=== PATIENT | male | born 1985 | race Caucasian/White ===

== ENCOUNTER 2023-08-18 08:33 | Emergency (ER) | payer BC, SELFPAY ==
[2023-08-18] VITALS (9 sets, daily range): BP systolic 134–167; BP diastolic 87–110
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
== END 2023-08-18 10:26 | disposition home or self-care (01) ==
LOC: EMR 08:33
PROVIDERS: EMERGENCY PHYSICIAN Emergency Medicine; OTHER PHYSICIAN Internal Medicine Nephrology
DX: S43.015A Anterior dislocation of left humerus, initial encounter (principal); S43.035A Inferior dislocation of left humerus, initial encounter; X58.XXXA Exposure to other specified factors, initial encounter; I48.91 Unspecified atrial fibrillation; N18.6 End stage renal disease; I12.0 Hypertensive chronic kidney disease with stage 5 chronic kidney disease or end stage renal disease; I50.9 Heart failure, unspecified; Z79.01 Long term (current) use of anticoagulants; Z99.2 Dependence on renal dialysis
CPT/HCPCS: 99285; 23650; 99152; 73030

== ENCOUNTER 2023-09-27 07:21 | Emergency (ER) | payer BC, SELFPAY ==
[2023-09-27] VITALS (9 sets, daily range): BP systolic 130–161; BP diastolic 92–111
--- NOTE | 2023-09-27 08:06 | ED.GENMED ---
History of Present Illness
General
Chief Complaint: Musculo-Skeletal Complaint
Source: patient
Time Seen by Provider: 09/27/23 07:39
Travel History
Have you had any contact with someone who has COVID-19?: No
Do you have any symptoms of coronavirus? Fever > 100 degrees, chills, cough, shortness of breath, sore throat, loss of taste or smell, muscle aches, or headache?: No
History of Present Illness
History of Present Illness:
This patient is a 38-year-old male presents emergency department complaints of left shoulder dislocation. This has happened several times in the past, most notably approximately 2 months since the year started. He has a fistula in his left upper
extremity as he is a hemodialysis patient and is due to get hemodialysis later today. He states this occurred when he leaned over to turn off his alarm clock, which has been a precipitating factor in the past. He denies numbness, tingling, fall or
trauma, neck pain, chest pain, shortness of breath, or other complaints.
Past History
Past History
ED Past Medical History: CHF and Renal failure
ED Past Surgical History: Other (L AV shunt)
Patient has exhibited threatening behavior?: No
PSI?: No
Social History
Tobacco: Non-smoker
Alcohol: None
Drug: None
Phy Exam
Physical Exam
Physical Exam:
GENERAL: Alert , in no apparent distress
EYE: pupils equal and reactive
NECK: Supple, no significant adenopathy.
ENT: o/p clr, mmm.
CARDIAC: Regular rate and rhythm .
LUNGS: Clear breath sounds bilaterally, no acute respiratory distress, no wheezes/rales/rhonchi
ABDOMEN: Soft, without focal tenderness, no r/g, no cvat
NEUROLOGICAL: Alert and oriented, no focal neuro deficits
SKIN: Warm and dry, skin intact.
MUSCULOSKELETAL: No edema, well perfused. Sensation intact particular the deltoid area. Left shoulder with 'rounded off' deformity/appearance, limited range of motion of left shoulder, no break in skin, no tenderness to palpation noted of clavicle
or distal humerus etc. 2+ radial ulnar pulses, process treater 5 out of 5.
PSYCH: Normal and appropriate interaction.
Course
Orders/Labs/Results
Orders:
Orders
09/27/23 07:25
Shoulder, Left, Trauma CR [CR Shoulder, Trauma - Left] Urgent
Comment:
Reason For Exam: pain, chronic dislocations
09/27/23 07:51
Propofol [Diprivan] 20 ml .ROUTE .STK-MED
09/27/23 08:25
CR Shoulder - Left 1 View Urgent
Reason For Exam: post reduction
Vital Signs
Initial and Last Documented VS:
Initial Vital Signs
Temp Pulse Resp BP Pulse Ox
97.7 F 82 20 161/109 100
09/27/23 07:22 09/27/23 07:22 09/27/23 07:22 09/27/23 07:22 09/27/23 07:22
Last Documented Vital Signs
Temp Pulse Resp BP Pulse Ox
97.8 F 73 16 137/92 98
09/27/23 09:01 09/27/23 09:01 09/27/23 09:01 09/27/23 09:01 09/27/23 09:01
Procedures
Moderate Sedation
ASA Risk Score: Class I
Chart and allergies reviewed: Yes
Consent for anesthesia obtained: Yes
Time out completed (validating right patient & procedure): Yes
History of difficult intubation: No
Airway free of obstruction: Yes
Patient has a gag reflex: Yes
Patient is able to open mouth: Yes
Patient has no dentures: Yes
Patient has no loose teeth: Yes
Medication administered by Provider during Moderate Sedation: IV Propofol (mg)
Total dose administered: 120
Time drug administered: 08:13
Start Time: 08:12
Stop Time: 08:33
Joint/Fracture Reduction
Lower Shoulder:
Indication for procedure:: DISLOCATION
Procedure completed by: JUSTYN SUTHERLAND MD AND MARIAH CHÁVEZ MD
Consent form signed: Yes
Joint reduced: with anesthesia sedation
Anesthesia/sedation: Moderate sedation
Injury was: closed
Further treatement: no treatment needed
Post reduction exam: stable
Capillary Refill: normal
Normal distal neurovascular exam?: Yes
*Critical Care Note
Total Time (30-74mins, 75-104mins- exclusive of procedures): Not Applicable
Update Note
Update Note:
Patient presents to the Emergency Department with left shoulder discomfort
Number and Complexity of Problems Addressed at the Encounter
� Chronic conditions affecting care:
� Acute Exacerbation and/or Progression of Chronic Illness:
� Differential Diagnosis includes: But not limited to dislocation, fracture, sprain
Amount and/or Complexity of Data to be Reviewed and Analyzed
� I performed an independent evaluation of and my interpretation is:
EKG:
CT:
Xrays: Read by me, left anterior shoulder dislocation noted
Laboratory Studies:
Other:
� Review of other/old records reveals:
� Clinical information was obtained by an independent historian:
� Prescriptions/Medications Considered but not given:
� Further testing considered but not performed:
Risk of Complications and/or Morbidity or Mortality of Patient Management
� Social determinants of health affecting care:
� Discussion with other providers (PCP, Hospitalists, Consultants, etc):
� Escalation of care including admission/observation vs risk of discharge considered: In collaboration with Dr. Mariah CHÁVEZ, procedural sedation administered and shoulder successfully reduced, patient placed in a sling and will be
advised for Ortho follow-up as an outpatient. Patient tolerated procedure well. pOST RED XRAY WIth successful reduction. 902 am Pt awake alert lucid, will be discharged home, aware of bp elevation.
ED Attending Note
-
Portions of this chart may have been created with voice recognition software.� Occasional wrong word or��sound alike� substitutions may have occurred due to the inherent limitations of voice recognition software.
Discharge Plan
Departure
Patient Disposition: Home (Routine Discharge)
Date of Disposition: 09/27/23
Time of Disposition: 09:02
Patient with high blood pressure during this ER visit?: Yes
Condition: Good
Discharge Problem:
Anterior shoulder dislocation, procedural sedation
Instructions: Shoulder Dislocation, How to Use a Shoulder Sling, MODERATE SEDATION ADULT, BLOOD PRESSURE
Prescriptions:
No Action
acetaminophen [Tylenol] 325 mg Tablet
650 mg PO Q6H PRN (Reason: mild pain)
carvedilol 3.125 mg Tablet
3.125 mg PO BID
digoxin 125 mcg (0.125 mg) Tablet
125 mcg PO TUTHFR@1500
Rx Instructions:
Per Dr Thanh Ac administrative court justice in [place] was supposed to be taking only 0.0625 (half tablet) after HD on TThSa but since his level is ok go ahead and give whole 125mcg tablet--01/21/23 Jose Zhang PharmD
[phone] Dr Ac office number
Santyl 250 unit/gram Ointment
1 applic TOPICAL DAILY
Rx Instructions:
01/20/2023, patient applies to b/l leg wounds
[place] Caps 1 mg Capsule
1 cap PO DAILY
cinacalcet 30 mg Tablet
30 mg PO QPM
Eliquis 5 mg Tablet
5 mg PO BID
Auryxia 210 mg iron Tablet
210 mg PO AC
meclizine 12.5 mg Tablet
12.5 mg PO Q8 PRN (Reason: dizziness) Qty: 21 0RF
Referrals:
NONE,* [Family Provider] -
Dex Spangler MD [Active] - Next open appointment
Activity Restrictions/Additional Instructions:
IF YOU DEVELOP NEW/PERSISTENT PAIN, ANY NUMBNESS, SWELLING, FEVER, WEAKNESS OR OTHER WORRISOME SIGNS, GO TO THE ER IMMEDIATELY!
Interventions
Interventions:
*Risk Screen - Suicide Last Done: 09/27/23 07:53
*Neglect/Abuse Screening Last Done: 09/27/23 07:53
ED- Fall Risk Assessment Last Done: 09/27/23 07:55
*ED COVID-19 Vaccine History Last Done: 09/27/23 07:53
ED-Musculoskeletal Assessment Last Done: 09/27/23 07:53
== END 2023-09-27 09:32 | disposition home or self-care (01) ==
LOC: EMR 07:21
PROVIDERS: EMERGENCY PHYSICIAN Emergency Medicine
DX: S43.005A Unspecified dislocation of left shoulder joint, initial encounter (principal); X50.1XXA Overexertion from prolonged static or awkward postures, initial encounter; R03.0 Elevated blood-pressure reading, without diagnosis of hypertension
CPT/HCPCS: 99285; 23650; 99152; 73020; 73030

== ENCOUNTER 2023-11-07 08:30 | Emergency (ER) | payer BC, SELFPAY ==
[2023-11-07] VITALS (28 sets, daily range): BP systolic 138–168; BP diastolic 97–118
--- NOTE | 2023-11-07 10:15 | ED.MUSCINJ ---
HPI-Injury
<Jaky Grimes, MAINTENANCE DEPARTMENT MANAGER - Last Filed: 11/08/23 07:55>
General
Chief Complaint: Fall
Source: patient
Exam Limitations: none
Time Seen by Provider: 11/07/23 09:10
Nursing documentation reviewed up to this point in time: agreed with
Travel History
Have you had any contact with someone who has COVID-19?: No
Do you have any symptoms of coronavirus? Fever > 100 degrees, chills, cough, shortness of breath, sore throat, loss of taste or smell, muscle aches, or headache?: No
History of Present Illness-Injury
Initial Injury comments:
38-year-old male with history of CHF, A-fib, chronic renal failure on dialysis, left upper arm dialysis graft presents stating he has a history of intermittent lightheadedness, this morning while walking down his steps at home he became lightheaded
and fell on the steps grabbing the railing with his left arm dislocating his shoulder. He denies hitting his head. He denies loss of consciousness. He denies headache. He denies neck pain. He denies any other injury. Pain 04/12.
Past History
<Jaky Grimes, MAINTENANCE DEPARTMENT MANAGER - Last Filed: 11/08/23 07:55>
Past History
ED Past Medical History: Arrthythmia (a fib), CHF and Renal failure
ED Past Surgical History: Other (L AV shunt)
Patient has exhibited threatening behavior?: No
PSI?: No
Social History
Tobacco: Non-smoker
Alcohol: None
Drug: None
Personal: Single
Living: with roommate
Employment: Employed
Review of Systems
<Jaky Grimes, MAINTENANCE DEPARTMENT MANAGER - Last Filed: 11/08/23 07:55>
Review of Systems
Allergies reviewed?: Yes
All Other Systems: ROS reviewed and negative except as documented in HPI and ROS
Musculoskeletal: Reports other (left shoulder pain)
Skin: Reports other (dialysis shunt L upper arm)
Neurological: Denies numbness
Phy Exam
<Jaky Grimes MAINTENANCE DEPARTMENT MANAGER - Last Filed: 11/08/23 07:55>
Physical Exam
Physical Exam:
GENERAL: No acute distress. A&Ox3.
CONSTITUTIONAL: Afebrile.
EYES: PERRL, conjunctivae normal
Neck: Supple
ENMT: moist mucus membranes, Pharynx nl
RESPIRATORY: Regular respirations, nonlabored, lungs clear.
CARDIOVASCULAR: Regular rate and rhythm, no murmurs, no rubs.
GI: Soft, nontender, normal BS
MUSCULOSKELETAL: No spinal bony tenderness. Obvious deformity of the left shoulder with limited range of motion of L ED you. Normal radial pulse. Brisk capillary refill. Well perfused.
SKIN: Warm, dry, pink dialysis shunt intact left upper extremity..
PSYCH: Normal mood and affect. Well kept, interactive and appropriate
NEUROLOGIC: Awake, alert and oriented. No focal neurological deficits
Injury Course
<Jaky Grimes MAINTENANCE DEPARTMENT MANAGER - Last Filed: 11/08/23 07:55>
Orders/Labs/Results
Orders:
Orders
11/07/23 08:50
Shoulder, Left 2 View CR [CR Shoulder - Left Min 2 View*] Urgent
Comment:
Reason For Exam: injury
11/07/23 10:27
Propofol [Diprivan] 20 ml .ROUTE .STK-MED
11/07/23 11:39
CR Shoulder - Left 1 View Urgent
Comment: portable please
Reason For Exam: post reduction
Mold Injector consulted with Physician
Mold Injector consulted with physician?: Yes
Name of Physician Consulted: [facility]
<Katt Britt MD - Last Filed: 11/07/23 11:42>
Orders/Labs/Results
Orders:
Orders
11/07/23 08:50
Shoulder, Left 2 View CR [CR Shoulder - Left Min 2 View*] Urgent
Comment:
Reason For Exam: injury
11/07/23 10:27
Propofol [Diprivan] 20 ml .ROUTE .STK-MED
11/07/23 11:39
CR Shoulder - Left 1 View Urgent
Comment: portable please
Reason For Exam: post reduction
Procedures
<Jaky Grimes NP - Last Filed: 11/08/23 07:55>
Moderate Sedation
ASA Risk Score: Class I
Chart and allergies reviewed: Yes
Consent for anesthesia obtained: Yes
Time out completed (validating right patient & procedure): Yes
History of difficult intubation: No
Airway free of obstruction: Yes
Patient has a gag reflex: Yes
Patient is able to open mouth: Yes
Patient has no dentures: Yes
Patient has no loose teeth: Yes
Joint/Fracture Reduction
Left Shoulder:
Indication for procedure:: dislocation
Procedure completed by: Suzie Grimes NP
Consent form signed: Yes
Joint reduced: with anesthesia sedation
Anesthesia/sedation: Moderate sedation
Injury was: closed
Further treatement: needs re-check only
Post reduction exam: stable
Capillary Refill: normal
Normal distal neurovascular exam?: Yes
<Katt Britt MD - Last Filed: 11/07/23 11:42>
Moderate Sedation
Medication administered by Provider during Moderate Sedation: IV Propofol (mg)
Total dose administered: 100
Time drug administered: 11:31
Moderate Sedation Procedure End Time: 11:41
Joint/Fracture Reduction
Lower Arm:
Indication for procedure:: dislocation of L shoulder
Procedure completed by: katt britt md and ramesh werner
Consent form signed: Yes
Joint reduced: with anesthesia sedation
Injury was: closed
Further treatement: no treatment needed
Post reduction exam: stable
Capillary Refill: normal
<Jaky Grimes MAINTENANCE DEPARTMENT MANAGER - Last Filed: 11/08/23 07:55>
MDM/Problems Addressed
Differential Diagnosis Includes:
Dislocation, fracture.
MDM/Problems Addressed:
38-year-old male with history of CHF, A-fib, chronic renal failure on dialysis, left upper arm dialysis graft presents stating he has a history of intermittent lightheadedness, this morning while walking down his steps at home he became lightheaded
and fell on the steps grabbing the railing with his left arm dislocating his shoulder. He denies hitting his head. He denies loss of consciousness. He denies headache. He denies neck pain. He denies any other injury. Pain 04/12.
in for moderate sedation
1:10 PM
Patient tolerated conscious sedation and procedure well
postreduction film read by this examiner, reveals shoulder joint in proper place. Sling in place.
Distal n/v intact
He is awake alert and oriented. He is tolerating ice chips. He states he makes very little urine as he is a dialysis patient patient
OOB and ambulating well.
Referred to orthopedics for f/u
Chronic conditions affecting care: Kidney disease (dialysis cath LUE)
<Jaky Grimes MAINTENANCE DEPARTMENT MANAGER - Last Filed: 11/08/23 07:55>
*Critical Care Note
Total Time (30-74mins, 75-104mins- exclusive of procedures): Not Applicable
ED Attending Note
<Jaky Grimes NP - Last Filed: 11/08/23 07:55>
-
Portions of this chart may have been created with voice recognition software.� Occasional wrong word or��sound alike� substitutions may have occurred due to the inherent limitations of voice recognition software.
<Katt Britt MD - Last Filed: 11/07/23 11:42>
ED Attending Note
Patient seen and examined by attending physician: Yes
I performed the substantive portion of visit, reviewed & personally made and approve the management plan that is documented in note by myself or GIANCARLO.: Yes
ED Attending Note:
38-year-old male with a history of end-stage renal disease states that he felt lightheaded while walking down the stairs, causing him to fall forward. Now reports left shoulder pain, obvious dislocation noted both on physical exam and x-ray.
Neurovascularly intact. No head injury. Risk and benefits of procedural sedation discussed with patient he expressed understanding. Shoulder reduced without difficulty, repeat x-ray pending
Discharge Plan
Departure
Patient Disposition: Home (Routine Discharge)
Date of Disposition: 11/07/23
Time of Disposition: 13:19
Patient with high blood pressure during this ER visit?: Yes
Condition: Good
Discharge Problem:
Dislocation of left shoulder joint, Fall down stairs
Instructions: Shoulder Dislocation (DC), MODERATE SEDATION ADULT, BLOOD PRESSURE
Prescriptions:
No Action
acetaminophen [Tylenol] 325 mg Tablet
650 mg PO Q6H PRN (Reason: mild pain)
carvedilol 3.125 mg Tablet
3.125 mg PO BID
digoxin 125 mcg (0.125 mg) Tablet
125 mcg PO TUTHFR@1500
Rx Instructions:
Per Dr Thanh Ac software development specialist in [place] was supposed to be taking only 0.0625 (half tablet) after HD on TThSa but since his level is ok go ahead and give whole 125mcg tablet--01/21/23 Jose Zhang PharmD
[phone] Dr Ac office number
Santyl 250 unit/gram Ointment
1 applic TOPICAL DAILY
Rx Instructions:
01/20/2023, patient applies to b/l leg wounds
[place] Caps 1 mg Capsule
1 cap PO DAILY
cinacalcet 30 mg Tablet
30 mg PO QPM
Eliquis 5 mg Tablet
5 mg PO BID
Auryxia 210 mg iron Tablet
210 mg PO AC
meclizine 12.5 mg Tablet
12.5 mg PO Q8 PRN (Reason: dizziness) Qty: 21 0RF
Referrals:
Your, Orthopedic doctor in [place] [Other] - Call in 1-3 days for appt
NONE,* [Family Provider] -
Activity Restrictions/Additional Instructions:
As we discussed, wear the sling until further instructed by your orthopedic doctor in [place]. Call today and make an appointment.
Interventions
Interventions:
*Risk Screen - Suicide Last Done: 11/07/23 11:04
*General Assessment Last Done: 11/07/23 11:04
*Neglect/Abuse Screening Last Done: 11/07/23 11:04
ED- Fall Risk Assessment Last Done: 11/07/23 11:05
*ED COVID-19 Vaccine History Last Done: 11/07/23 08:40
*Nursing Disposition Last Done: 11/07/23 13:50
ED-Musculoskeletal Assessment Last Done: 11/07/23 10:44
ED- Neurological Assessment Last Done: 11/07/23 11:02
ED-Skin Assessment Last Done: 11/07/23 10:44
Discharge Date and Time
Discharge Date/Time: 11/07/23 13:50
Print Language: POLISH
== END 2023-11-07 13:50 | disposition home or self-care (01) ==
LOC: EMR 08:30
PROVIDERS: EMERGENCY PHYSICIAN Emergency Medicine
DX: S43.015A Anterior dislocation of left humerus, initial encounter (principal); W10.9XXA Fall (on) (from) unspecified stairs and steps, initial encounter; R03.0 Elevated blood-pressure reading, without diagnosis of hypertension; I50.9 Heart failure, unspecified; I48.20 Chronic atrial fibrillation, unspecified
CPT/HCPCS: 99285; 23650; 99152; 73020; 73030

== ENCOUNTER 2023-11-14 08:38 | Emergency (ER) | payer BC, SELFPAY ==
[2023-11-14] VITALS (15 sets, daily range): BP systolic 131–157; BP diastolic 89–121
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
== END 2023-11-14 11:06 | disposition home or self-care (01) ==
LOC: EMR 08:38
PROVIDERS: EMERGENCY PHYSICIAN Emergency Medicine
DX: S43.005A Unspecified dislocation of left shoulder joint, initial encounter (principal); W10.9XXA Fall (on) (from) unspecified stairs and steps, initial encounter; I10 Essential (primary) hypertension
CPT/HCPCS: 99285; 23650; 99152; 73030

== ENCOUNTER 2023-11-18 20:48 | Emergency (ER) | payer BC, SELFPAY ==
[2023-11-18 20:48] VITALS: BMI 26.6
[2023-11-18 20:53] VITALS: BP 123/78
--- NOTE | 2023-11-18 22:49 | ED.MUSCINJ ---
HPI-Injury
General
Chief Complaint: Musculo-Skeletal Complaint
Source: patient
Exam Limitations: none
Time Seen by Provider: 11/18/23 21:38
Nursing documentation reviewed up to this point in time: agreed with
Travel History
Have you had any contact with someone who has COVID-19?: No
Do you have any symptoms of coronavirus? Fever > 100 degrees, chills, cough, shortness of breath, sore throat, loss of taste or smell, muscle aches, or headache?: No
History of Present Illness-Injury
Is this injury a work related problem?: No
Is pt an associate of [facility]?: No
Initial Injury comments:
Patient to ED with complaint of left shoulder dislocation. States he was reaching with his other hand and left shoulder slid out. He has had prior dislocations to this shoulder. Was seen in ED 2 days ago for same. He reports that he was wearing
his sling when dislocation occurred.
Past History
Past History
ED Past Medical History: Arrthythmia (a fib), CHF and Renal failure
ED Past Surgical History: Other (L AV shunt)
Patient has exhibited threatening behavior?: No
PSI?: No
Social History
Tobacco: Non-smoker
Alcohol: None
Drug: None
Personal: Single
Living: with roommate
Employment: Employed
Review of Systems
Review of Systems
Allergies reviewed?: Yes
All Other Systems: ROS reviewed and negative except as documented in HPI and ROS
Constitutional: Reports no symptoms
Skin: Reports no symptoms
Neurological: Reports other (left shoulder dislocation)
Psychiatric: Reports no symptoms
Musculoskeletal Injury Exam
Musculoskeletal Injury Exam
Left Shoulder:
Pain with Movement?: Moderate
Tender to palpation?: Moderate
Soft tissue swelling?: None
External deformity and angulation?: Moderate
Joint effusion?: None
Contusion?: None
Hematoma-local bleeding into tissue?: None
Strain- Sprain- Tear (Connective tissue injury)?: Moderate
Crepitus with movement?: No
Joint instability?: No
Malalignment/deformity?: No
Range of motion: Limited
Distal skin color and temperature: normal-warm & good color
Capillary Refill: normal
Normal distal neurovascular exam?: Yes
Phy Exam
General Physical Exam
General Presentation: well appearing and moderate distress
General age: appears stated age
General Skin: warm and dry
General Habitus: normal
General Mental: alert
Musculoskeletal Exam
Musculoskeletal Exam: neuro vasc intact
Skin Exam
Skin Exam: normal color, warm/dry and no rash
Psychiatric Exam
Psychiatric Exam: normal mood/affect
Injury Course
Orders/Labs/Results
Orders:
Orders
11/18/23 20:54
Shoulder, Left, Trauma CR [CR Shoulder, Trauma - Left] Urgent
Comment:
Reason For Exam: shoulder dislocation
11/18/23 21:48
0.9% Sodium Chloride 1000 ml [Nss] 1,000 ml IV BOLUS
11/18/23 21:49
ASA Classification Routine
Propofol [Diprivan] 100 mg IV NOW STA
11/18/23 22:19
Shoulder, Left, Trauma CR [CR Shoulder, Trauma - Left] Urgent
Comment:
Reason For Exam: post reduction
11/18/23 22:20
Shoulder Immobilizer Left- Tx ONCE
*Critical Care Note
Total Time (30-74mins, 75-104mins- exclusive of procedures): Not Applicable
Update Note
Update Note:
Patient being positioned on stretcher by staff for moderate sedation and left shoulder reduced on own. Xray confirms placement. He remains neurovascularly intact. He was placed back in shoulder immobilizer and discharged home. Recommend ortho
followup.
ED Attending Note
-
Portions of this chart may have been created with voice recognition software.� Occasional wrong word or��sound alike� substitutions may have occurred due to the inherent limitations of voice recognition software.
Discharge Plan
Departure
Patient Disposition: Home (Routine Discharge)
Date of Disposition: 11/18/23
Time of Disposition: 22:28
Patient with high blood pressure during this ER visit?: No
Condition: Good
Covid-19: Not Applicable
Discharge Problem:
Dislocation of shoulder
Instructions: Shoulder Dislocation (DC), Using Cold for Pain, How to Use a Shoulder Sling ED
Prescriptions:
No Action
acetaminophen [Tylenol] 325 mg Tablet
650 mg PO Q6H PRN (Reason: mild pain)
carvedilol 3.125 mg Tablet
3.125 mg PO BID
digoxin 125 mcg (0.125 mg) Tablet
125 mcg PO TUTHFR@1500
Rx Instructions:
Per Dr Thanh Ac shrimp trawler captain in [place] was supposed to be taking only 0.0625 (half tablet) after HD on TThSa but since his level is ok go ahead and give whole 125mcg tablet--01/21/23 Jose Zhang PharmD
[phone] Dr Ac office number
Santyl 250 unit/gram Ointment
1 applic TOPICAL DAILY
Rx Instructions:
01/20/2023, patient applies to b/l leg wounds
[place] Caps 1 mg Capsule
1 cap PO DAILY
cinacalcet 30 mg Tablet
30 mg PO QPM
Eliquis 5 mg Tablet
5 mg PO BID
Auryxia 210 mg iron Tablet
210 mg PO AC
meclizine 12.5 mg Tablet
12.5 mg PO Q8 PRN (Reason: dizziness) Qty: 21 0RF
Referrals:
NONE,* [Family Provider] -
Teran,Zachary, MD [Active] - Call in 1-3 days for appt
Interventions
Interventions:
*Risk Screen - Suicide Last Done: 11/18/23 22:16
*General Assessment Last Done: 11/18/23 22:16
*Neglect/Abuse Screening Last Done: 11/18/23 22:16
*ED COVID-19 Vaccine History Last Done: 11/18/23 22:16
Discharge Date and Time
Print Language: HUNGARIAN
== END 2023-11-18 23:00 | disposition home or self-care (01) ==
LOC: EMR 20:48
PROVIDERS: EMERGENCY PHYSICIAN Emergency Medicine
DX: S43.015A Anterior dislocation of left humerus, initial encounter (principal); X50.1XXA Overexertion from prolonged static or awkward postures, initial encounter
CPT/HCPCS: 99283; 73030

== ENCOUNTER 2024-02-24 07:45 | Emergency (ER) | payer BC, SELFPAY ==
[2024-02-24 07:46] VITALS: BP 147/100
--- NOTE | 2024-02-24 08:07 | ED.MUSCINJ ---
HPI-Injury
General
Chief Complaint: Musculo-Skeletal Complaint
Source: patient
Time Seen by Provider: 02/24/24 07:54
History of Present Illness-Injury
Initial Injury comments:
38yo right hand dominant male presenting for evaluation of a left shoulder injury. Patient has a history of recurrent shoulder dislocations. He was putting something in his car 30 minutes ago and he reached with his left arm and felt a pop. He is
presenting with a left shoulder deformity and he believes his shoulder is dislocated again. Patient denies any paresthesias. He has no other complaints.
Past History
Past History
ED Past Medical History: Arrthythmia (a fib), CHF and Renal failure
ED Past Surgical History: Other (L AV shunt)
Patient has exhibited threatening behavior?: No
PSI?: No
Social History
Tobacco: Non-smoker
Alcohol: None
Drug: None
Personal: Single
Living: with roommate
Employment: Employed
Phy Exam
General Physical Exam
General Presentation: well appearing and no apparent distress
General age: appears stated age
General Skin: warm and dry
General Habitus: normal
General Mental: alert
Pulmonary Exam
Pulmonary Exam: no respiratory distress
Musculoskeletal Exam
Musculoskeletal Exam: other (L shoulder: Deformity noted with decreased ROM. Skin intact. Sensation intact in axillary nerve distribution. 2+ radial pulse. )
Skin Exam
Skin Exam: normal color and warm/dry
Psychiatric Exam
Psychiatric Exam: normal mood/affect
Injury Course
Orders/Labs/Results
Orders:
Orders
02/24/24 07:49
Shoulder, Left 2 View CR [CR Shoulder - Left Min 2 View*] Urgent
Comment:
Reason For Exam: dislocation
02/24/24 08:06
CR Shoulder - Left 1 View Urgent
Reason For Exam: post reduction
02/24/24 08:10
Sling Left-Treatment ONCE
Procedures
Joint/Fracture Reduction
Left Shoulder:
Indication for procedure:: Dislocation
Procedure completed by: Apple Chawla PA-C
Joint reduced: without anesthesia
Injury was: closed
Post reduction exam: stable
Capillary Refill: normal
Normal distal neurovascular exam?: Yes
Peripheral Pulses: radial (left): 2+
Additional information:
Shoulder reduced with massage and external rotation. Patient tolerated well and had immediate resolution of pain. LUE neurovascularly intact after reduction. Reduction confirmed with x-ray.
MDM/Problems Addressed
Differential Diagnosis Includes:
38yoM here with a L shoulder dislocation. Hx of recurrent dislocations. Deformity present on exam. X-rays on arrival confirm an anterior dislocation. Shoulder was reduced easily with massage and external rotation. Post-reduction films confirm
appropriate placement. LUE neurovascularly intact after reduction. He was placed in a sling and advised to f/u with orthopedics.
*Critical Care Note
Total Time (30-74mins, 75-104mins- exclusive of procedures): Not Applicable
ED Attending Note
-
Portions of this chart may have been created with voice recognition software.� Occasional wrong word or��sound alike� substitutions may have occurred due to the inherent limitations of voice recognition software.
Discharge Plan
Departure
Patient Disposition: Home (Routine Discharge)
Date of Disposition: 02/24/24
Time of Disposition: 08:42
Patient with high blood pressure during this ER visit?: Yes
Discharge Problem:
Anterior dislocation of left shoulder
Instructions: Shoulder Dislocation (DC)
Prescriptions:
No Action
acetaminophen [Tylenol] 325 mg Tablet
650 mg PO Q6H PRN (Reason: mild pain)
carvedilol 3.125 mg Tablet
3.125 mg PO BID
digoxin 125 mcg (0.125 mg) Tablet
125 mcg PO TUTHFR@1500
Rx Instructions:
Per Dr Thanh Ac marine electrician apprentice in [place] was supposed to be taking only 0.0625 (half tablet) after HD on TThSa but since his level is ok go ahead and give whole 125mcg tablet--01/21/23 Jose Zhang PharmD
[phone] Dr Ac office number
Santyl 250 unit/gram Ointment
1 applic TOPICAL DAILY
Rx Instructions:
01/20/2023, patient applies to b/l leg wounds
[place] Caps 1 mg Capsule
1 cap PO DAILY
cinacalcet 30 mg Tablet
30 mg PO QPM
Eliquis 5 mg Tablet
5 mg PO BID
Auryxia 210 mg iron Tablet
210 mg PO AC
meclizine 12.5 mg Tablet
12.5 mg PO Q8 PRN (Reason: dizziness) Qty: 21 0RF
Referrals:
NONE,* [Family Provider] -
David Teran MD [Non-Admitting Privileges] -
Activity Restrictions/Additional Instructions:
Wear sling for immobilization.
Please follow-up with orthopedics.
Interventions
Interventions:
*Risk Screen - Suicide Last Done: 02/24/24 08:45
*General Assessment Last Done: 02/24/24 08:45
*Neglect/Abuse Screening Last Done: 02/24/24 08:45
ED- Fall Risk Assessment Last Done: 02/24/24 08:45
*ED COVID-19 Vaccine History Last Done: 02/24/24 08:45
*Nursing Disposition Last Done: 02/24/24 08:45
ED-Musculoskeletal Assessment Last Done: 02/24/24 08:45
Discharge Date and Time
Discharge Date/Time: 02/24/24 08:58
Print Language: MOHAWK
== END 2024-02-24 08:58 | disposition home or self-care (01) ==
LOC: EMR 07:45
PROVIDERS: EMERGENCY PHYSICIAN Emergency Medicine
DX: S43.015A Anterior dislocation of left humerus, initial encounter (principal); X50.1XXA Overexertion from prolonged static or awkward postures, initial encounter; Y93.89 Activity, other specified; R03.0 Elevated blood-pressure reading, without diagnosis of hypertension; I48.91 Unspecified atrial fibrillation; I50.9 Heart failure, unspecified; N19 Unspecified kidney failure; Z91.048 Other nonmedicinal substance allergy status
CPT/HCPCS: 99283; 23650; 73020; 73030

== ENCOUNTER 2024-02-24 10:49 | Emergency (ER) | payer BC, SELFPAY ==
[2024-02-24 10:55] VITALS: BP 153/99
--- NOTE | 2024-02-24 11:29 | ED.MUSCINJ ---
HPI-Injury
General
Chief Complaint: Musculo-Skeletal Complaint
Source: patient and records
Time Seen by Provider: 02/24/24 11:01
History of Present Illness-Injury
Initial Injury comments:
38yoM with a history of ESRD on hemodialysis presenting for a left shoulder dislocation. He was seen here earlier for the same and shoulder was reduced at time of discharge. He was in the shower and reached with his left arm when his shoulder
dislocated again. He tried to reduce the joint at home without success so came back to the ED. No paresthesias. Patient is awaiting renal transplant and is unable to undergo shoulder surgery until this is complete.
Past History
Past History
ED Past Medical History: Arrthythmia (a fib), CHF and Renal failure
ED Past Surgical History: Other (L AV shunt)
Patient has exhibited threatening behavior?: No
PSI?: No
Social History
Tobacco: Non-smoker
Alcohol: None
Drug: None
Personal: Single
Living: with roommate
Employment: Employed
Phy Exam
General Physical Exam
General Presentation: well appearing
General age: appears stated age
General Skin: warm and dry
General Habitus: normal
General Mental: alert
[place] Coma Scale
Eye Opening: Spontaneous
Verbal Response: Oriented
Motor Response: Obeys Commands
GCS Total Score: 15
Musculoskeletal Exam
Musculoskeletal Exam: other (L shoulder: Deformity noted with decreased ROM. 2+ radial pulse and sensation intact. )
Skin Exam
Skin Exam: normal color and warm/dry
Procedures
Joint/Fracture Reduction
Left Shoulder:
Indication for procedure:: Dislocation
Procedure completed by: Apple Chawla PA-C
Joint reduced: without anesthesia
Injury was: closed
Post reduction exam: stable
Capillary Refill: normal
Normal distal neurovascular exam?: Yes
Peripheral Pulses: radial (left): 2+
Additional information:
Shoulder reduced easily with gentle traction and external rotation. Pain in shoulder resolved and ROM improved. Neurovascular status unchanged after reduction.
MDM/Problems Addressed
Differential Diagnosis Includes:
38yoM here with L shoulder dislocation. Seen here earlier for the same. Shoulder re-dislocated again after discharge. Deformity noted on exam. Shoulder reduced easily with gentle traction and external rotation. Patient is declining post-reduction
x-rays at this time stating he knows the shoulder is reduced. LUE remains neurovascularly intact. Sling placed. Advised f/u with orthopedics. He was discharged in stable condition.
*Critical Care Note
Total Time (30-74mins, 75-104mins- exclusive of procedures): Not Applicable
ED Attending Note
-
Portions of this chart may have been created with voice recognition software.� Occasional wrong word or��sound alike� substitutions may have occurred due to the inherent limitations of voice recognition software.
Discharge Plan
Departure
Patient Disposition: Home (Routine Discharge)
Date of Disposition: 02/24/24
Time of Disposition: 11:08
Patient with high blood pressure during this ER visit?: Yes
Discharge Problem:
Anterior dislocation of left shoulder
Instructions: Shoulder Dislocation (DC)
Prescriptions:
No Action
acetaminophen [Tylenol] 325 mg Tablet
650 mg PO Q6H PRN (Reason: mild pain)
carvedilol 3.125 mg Tablet
3.125 mg PO BID
digoxin 125 mcg (0.125 mg) Tablet
125 mcg PO TUTHFR@1500
Rx Instructions:
Per Dr Thanh Ac president mortgage company in [place] was supposed to be taking only 0.0625 (half tablet) after HD on TThSa but since his level is ok go ahead and give whole 125mcg tablet--01/21/23 Jose Zhang PharmD
[phone] Dr Ac office number
Santyl 250 unit/gram Ointment
1 applic TOPICAL DAILY
Rx Instructions:
01/20/2023, patient applies to b/l leg wounds
[place] Caps 1 mg Capsule
1 cap PO DAILY
cinacalcet 30 mg Tablet
30 mg PO QPM
Eliquis 5 mg Tablet
5 mg PO BID
Auryxia 210 mg iron Tablet
210 mg PO AC
meclizine 12.5 mg Tablet
12.5 mg PO Q8 PRN (Reason: dizziness) Qty: 21 0RF
Referrals:
Zachary Teran MD [Active] -
Activity Restrictions/Additional Instructions:
Please wear sling for immobilization and follow-up with orthopedics.
Interventions
Interventions:
*Risk Screen - Suicide Last Done: 02/24/24 10:56
*General Assessment Last Done: 02/24/24 10:56
*Neglect/Abuse Screening Last Done: 02/24/24 10:56
ED- Fall Risk Assessment Last Done: 02/24/24 11:34
*Nursing Disposition Last Done: 02/24/24 11:34
ED-Musculoskeletal Assessment Last Done: 02/24/24 11:33
Discharge Date and Time
Discharge Date/Time: 02/24/24 11:34
Print Language: IRISH
== END 2024-02-24 11:34 | disposition home or self-care (01) ==
LOC: EMR 10:49
PROVIDERS: EMERGENCY PHYSICIAN Emergency Medicine
DX: M24.412 Recurrent dislocation, left shoulder (principal); R03.0 Elevated blood-pressure reading, without diagnosis of hypertension; I48.91 Unspecified atrial fibrillation; I50.9 Heart failure, unspecified; N18.6 End stage renal disease; Z99.2 Dependence on renal dialysis; Z76.82 Awaiting organ transplant status; Z91.048 Other nonmedicinal substance allergy status
CPT/HCPCS: 99283; 23650

== ENCOUNTER 2024-03-06 09:29 | Emergency (ER) | payer BC, SELFPAY ==
[2024-03-06 09:38] VITALS: BP 141/101
[2024-03-06 10:30] VITALS: BMI 27.1
--- NOTE | 2024-03-06 10:30 | EDRN ---
Received patient on stretcher. Patient stated that his left shoulder dislocated again this morning while he was shampooing his hair. +2 radial pulse. Denies any numbness or tingling.
--- NOTE | 2024-03-06 10:33 | ED.GENMED ---
History of Present Illness
General
Chief Complaint: Musculo-Skeletal Complaint
Source: patient
Exam Limitations: none
Time Seen by Provider: 03/06/24 09:50
Nursing documentation reviewed up to this point in time: agreed with
History of Present Illness
History of Present Illness:
Patient is a 38-year-old male with a history of renal failure on hemodialysis Tuesday who presents to the ER complaining of left shoulder dislocation. He has history of frequent shoulder dislocations greater than 6 times and
reports he was washing his hair today and felt his left shoulder dislocate. He was just here February 23 and and had it reduced without sedation. Patient is right-hand dominant. He does have his dialysis fistula in this left arm.
He denies any numbness tingling. Denies any other injuries
Past History
Past History
ED Past Medical History: Arrthythmia (a fib), CHF and Renal failure
ED Past Surgical History: Other (L AV shunt)
Patient has exhibited threatening behavior?: No
PSI?: No
Social History
Tobacco: Non-smoker
Alcohol: None
Drug: None
Personal: Single
Living: with roommate
Employment: Employed
Review of Systems
Review of Systems
Allergies reviewed?: Yes
All Other Systems: ROS reviewed and negative except as documented in HPI and ROS
Constitutional: Reports no symptoms; Denies fever, fatigue or chills
Musculoskeletal: Reports other (Left shoulder dislocation/pain)
Skin: Reports no symptoms
Neurological: Reports no symptoms
Psychiatric: Reports no symptoms
Phy Exam
General Physical Exam
General Presentation: no apparent distress
General age: appears stated age
General Skin: warm and dry
General Habitus: normal
General Mental: alert
General Hydration: appears well hydrated
Neurological Exam
Neurological Exam: alert and oriented x3
Musculoskeletal Exam
Musculoskeletal Exam: other (Left upper extremity with strong pulses obvious deformity to left shoulder normal distal sensation, nml distal cap refill nml lead man over all dies in pattern shop strength + thrill with fistula to left upper arm )
Skin Exam
Skin Exam: normal color
Course
Orders/Labs/Results
Orders:
Orders
03/06/24 09:41
Shoulder, Left 2 View CR [CR Shoulder - Left Min 2 View*] Urgent
Comment:
Reason For Exam: possible dislocation
03/06/24 10:38
Sling Left-Treatment ONCE
03/06/24 10:39
Shoulder, Left, Trauma CR [CR Shoulder, Trauma - Left] Urgent
Comment:
Reason For Exam: post reduction
Vital Signs
Initial and Last Documented VS:
Initial Vital Signs
Temp Pulse Resp BP Pulse Ox
98 F 86 16 141/101 98
03/06/24 09:38 03/06/24 09:38 03/06/24 09:38 03/06/24 09:38 03/06/24 09:38
Last Documented Vital Signs
Temp Pulse Resp BP Pulse Ox
98 F 86 16 141/101 98
03/06/24 09:38 03/06/24 09:38 03/06/24 09:38 03/06/24 09:38 03/06/24 09:38
Procedures
Joint/Fracture Reduction
Left Shoulder:
Indication for procedure:: dislocation left shoulder
Procedure completed by: myself Nitin Barton NP
If no, reason: Emergency procedure
Joint reduced: without anesthesia
Further treatement: no treatment needed
Capillary Refill: normal
Normal distal neurovascular exam?: Yes
Additional information:
verbal consent given
MDM/Problems Addressed
Differential Diagnosis Includes:
not limited to: shoulder dislocation less likely fracture
MDM/Problems Addressed:
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 Patient gave verbal consent and shoulder was successfully reduced
at bedside without sedation required using distraction and external rotation. Sling applied will confirm with postreduction x-ray. Patient is presently holding off on orthopedic treatment as he is awaiting kidney transplant first.
*Critical Care Note
Total Time (30-74mins, 75-104mins- exclusive of procedures): Not Applicable
ED Attending Note
-
Portions of this chart may have been created with voice recognition software.� Occasional wrong word or��sound alike� substitutions may have occurred due to the inherent limitations of voice recognition software.
Discharge Plan
Departure
Patient Disposition: Home (Routine Discharge)
Date of Disposition: 03/06/24
Time of Disposition: 11:38
Patient with high blood pressure during this ER visit?: Yes
Condition: Fair
Covid-19: Not Applicable
Discharge Problem:
Anterior shoulder dislocation
Instructions: Shoulder Dislocation (DC)
Prescriptions:
No Action
acetaminophen [Tylenol] 325 mg Tablet
650 mg PO Q6H PRN (Reason: mild pain)
carvedilol 3.125 mg Tablet
3.125 mg PO BID
digoxin 125 mcg (0.125 mg) Tablet
125 mcg PO TUTHFR@1500
Rx Instructions:
Per Dr Thanh Ac ash collector in [place] was supposed to be taking only 0.0625 (half tablet) after HD on TThSa but since his level is ok go ahead and give whole 125mcg tablet--01/21/23 Jose Zhang PharmD
[phone] Dr Ac office number
Santyl 250 unit/gram Ointment
1 applic TOPICAL DAILY
Rx Instructions:
01/20/2023, patient applies to b/l leg wounds
[place] Caps 1 mg Capsule
1 cap PO DAILY
cinacalcet 30 mg Tablet
30 mg PO QPM
Eliquis 5 mg Tablet
5 mg PO BID
Auryxia 210 mg iron Tablet
210 mg PO AC
meclizine 12.5 mg Tablet
12.5 mg PO Q8 PRN (Reason: dizziness) Qty: 21 0RF
Referrals:
NONE,* [Family Provider] -
Activity Restrictions/Additional Instructions:
Wear sling for support follow-up with orthopedics as discussed. limit use of left shoulder. Return if any worsening of symptoms
Interventions
Interventions:
*Risk Screen - Suicide Last Done: 03/06/24 09:38
*General Assessment Last Done: 03/06/24 09:38
*Neglect/Abuse Screening Last Done: 03/06/24 09:38
ED-Musculoskeletal Assessment Last Done: 03/06/24 10:30
Discharge Date and Time
Print Language: MONTENEGRIN
--- NOTE | 2024-03-06 11:54 | EDRN ---
Reviewed discharge instructions with patient. Verbalized understanding. Ambulated with steady gait to the lobby.
[2024-03-06 11:56] VITALS: BP 161/100
== END 2024-03-06 11:57 | disposition home or self-care (01) ==
LOC: EMR 09:29
PROVIDERS: EMERGENCY PHYSICIAN Emergency Medicine
DX: S43.015A Anterior dislocation of left humerus, initial encounter (principal); X58.XXXA Exposure to other specified factors, initial encounter; N18.9 Chronic kidney disease, unspecified; I48.91 Unspecified atrial fibrillation; I50.9 Heart failure, unspecified; Z99.2 Dependence on renal dialysis; Z76.82 Awaiting organ transplant status
CPT/HCPCS: 99283; 23650; 73030

== ENCOUNTER 2024-03-21 02:13 | Emergency (ER) | payer BC, SELFPAY ==
--- NOTE | 2024-03-21 03:16 | DOWNTIME ---
There was a [facility] Client Curriculum Development Specialist Downtime on 03/21/2024 from 0100 to 03/21/2024 at 0300. Downtime documentation of patient's care, including medication administrations, has been reconciled in the electronic record per guidelines. Refer to the
patient's paper chart under the miscellaneous tab to see printed paper medication records and downtime forms.
--- NOTE | 2024-03-21 09:43 | ED.MUSCINJ ---
HPI-Injury
General
Chief Complaint: Musculo-Skeletal Complaint
Source: patient and records
Exam Limitations: none
Time Seen by Provider: 03/21/24 03:15
History of Present Illness-Injury
Initial Injury comments:
38yo right hand dominant male with a history of recurrent shoulder dislocations and ESRD on hemodialysis presenting for a L shoulder dislocation. Patient was sleeping this evening and he woke up with pain in his L shoulder and noticed that his
shoulder was dislocated. He denies any injuries and went to bed without any pain. No paresthesias. He has a history of frequent dislocations and has been seen in the ED multiple times for the same. He is currently awaiting renal transplant and has
been holding off on orthopedic treatment pending his transplant. He was last seen in the ED on 03/06/24 for a shoulder dislocation.
Past History
Past History
ED Past Medical History: Arrthythmia (a fib), CHF and Renal failure
ED Past Surgical History: Other (L AV shunt)
Patient has exhibited threatening behavior?: No
PSI?: No
Social History
Tobacco: Non-smoker
Alcohol: None
Drug: None
Personal: Single
Living: with roommate
Employment: Employed
Phy Exam
General Physical Exam
General Presentation: well appearing and no apparent distress
General age: appears stated age
General Skin: warm and dry
General Mental: alert
ENT Exam
ENT Exam: normocephalic
Pulmonary Exam
Pulmonary Exam: no respiratory distress
Musculoskeletal Exam
Musculoskeletal Exam: other (L shoulder: Obvious deformity noted with decreased ROM. Skin intact. LUE fistula noted. 2+ radial pulse and sensation intact.)
Skin Exam
Skin Exam: normal color and warm/dry
Psychiatric Exam
Psychiatric Exam: normal mood/affect
Injury Course
Orders/Labs/Results
Orders:
Orders
03/21/24 02:29
CR Shoulder - Left Min 2 View* Urgent
Reason For Exam: s/p reduction
Procedures
Joint/Fracture Reduction
Left shoulder:
Indication for procedure:: Dislocation
Procedure completed by: Apple Chawla PA-C
Joint reduced: without anesthesia
Injury was: closed
Post reduction exam: stable
Capillary Refill: normal
Normal distal neurovascular exam?: Yes
Peripheral Pulses: radial (left): 2+
Additional information:
Joint reduced with adduction and external rotation. Patient tolerated well without immediate complications. Normal neurovascular exam after reduction.
MDM/Problems Addressed
Differential Diagnosis Includes:
38yoM here with a L shoulder dislocation. Hx of recurrent dislocations. Obvious deformity noted on exam. LUE is neurovascularly intact. Presentation consistent with an anterior dislocation.
Joint was reduced at bedside with external rotation. Joint reduced easily without any sedation. Extremity remains neurovascularly intact. Reduction confirmed with x-ray. Patient placed in sling. He was advised to f/u with orthopedics. Patient given
discharge instructions during [facility] downtime.
*Critical Care Note
Total Time (30-74mins, 75-104mins- exclusive of procedures): Not Applicable
ED Attending Note
-
Portions of this chart may have been created with voice recognition software.� Occasional wrong word or��sound alike� substitutions may have occurred due to the inherent limitations of voice recognition software.
Discharge Plan
Departure
Patient Disposition: Home (Routine Discharge)
Date of Disposition: 03/21/24
Time of Disposition: 02:49
Patient with high blood pressure during this ER visit?: No
Discharge Problem:
Anterior dislocation of left shoulder
Prescriptions:
No Action
acetaminophen [Tylenol] 325 mg Tablet
650 mg PO Q6H PRN (Reason: mild pain)
carvedilol 3.125 mg Tablet
3.125 mg PO BID
digoxin 125 mcg (0.125 mg) Tablet
125 mcg PO TUTHFR@1500
Rx Instructions:
Per Dr Thanh Ac fish pitcher in [place] was supposed to be taking only 0.0625 (half tablet) after HD on TThSa but since his level is ok go ahead and give whole 125mcg tablet--01/21/23 Jose Zhang PharmD
[phone] Dr Ac office number
Santyl 250 unit/gram Ointment
1 applic TOPICAL DAILY
Rx Instructions:
01/20/2023, patient applies to b/l leg wounds
[place] Caps 1 mg Capsule
1 cap PO DAILY
cinacalcet 30 mg Tablet
30 mg PO QPM
Eliquis 5 mg Tablet
5 mg PO BID
Auryxia 210 mg iron Tablet
210 mg PO AC
meclizine 12.5 mg Tablet
12.5 mg PO Q8 PRN (Reason: dizziness) Qty: 21 0RF
Referrals:
NONE,* [Family Provider] -
Interventions
Interventions:
*Nursing Disposition Last Done: 03/21/24 02:49
Discharge Date and Time
Discharge Date/Time: 03/21/24 03:15
Print Language: MOZAMBICAN
== END 2024-03-21 03:15 | disposition home or self-care (01) ==
LOC: EMR 02:13
PROVIDERS: EMERGENCY PHYSICIAN Student in an Organized Health Care Education/Training Program
DX: S43.015A Anterior dislocation of left humerus, initial encounter (principal); X58.XXXA Exposure to other specified factors, initial encounter; I48.91 Unspecified atrial fibrillation; I50.9 Heart failure, unspecified; N18.6 End stage renal disease; Z99.2 Dependence on renal dialysis; Z76.82 Awaiting organ transplant status; Z91.048 Other nonmedicinal substance allergy status; Z79.01 Long term (current) use of anticoagulants
CPT/HCPCS: 99283; 23650; 73030

== ENCOUNTER 2024-04-08 20:40 | Emergency (ER) | payer BC, SELFPAY ==
[2024-04-08 20:41] VITALS: BP 174/119
[2024-04-08 21:42] VITALS: BMI 27.2
--- NOTE | 2024-04-08 21:53 | ED.GENMED ---
History of Present Illness
General
Chief Complaint: Musculo-Skeletal Complaint
Source: patient
Time Seen by Provider: 04/08/24 20:58
History of Present Illness
History of Present Illness:
38-year-old male who presents with left shoulder dislocation. He states this happens frequently. He unfortunate has not been able to have surgery because he has an AV graft in that same arm and he gets dialysis 3 times a week. He is waiting for
kidney transplant. The patient states he was just taking off his shirt to go to bed his arm popped out. He has been wearing a sling at home
Past History
Past History
ED Past Medical History: Arrthythmia (a fib), CHF and Renal failure
ED Past Surgical History: Other (L AV shunt)
Patient has exhibited threatening behavior?: No
PSI?: No
Social History
Tobacco: Non-smoker
Alcohol: None
Drug: None
Personal: Single
Living: with roommate
Employment: Employed
Phy Exam
Physical Exam
Physical Exam:
CONSTITUTIONAL Vital signs reviewed, Patient alert and oriented to person, place and time. Well-appearing
HEAD atraumatic, normocephalic.
EYES eyelids normal to inspection, Extraocular muscles intact, Conjunctiva normal, Sclera normal.
NECK normal range of motion, Trachea midline, no jugular venous distention.
RESP no respiratory distress
BACK No obvious deformities
UPPER EXTREMITY empty glenoid on the left. Unable to range due to deformity. AV graft left upper extremity with normal thrill
LOWER EXTREMITY Gross range of motion normal, Gross motor strength normal
NEURO Speech normal, No focal motor deficits include, Abbott coma scale 15, Memory normal, Cranial Nerves intact to screening exam.
SKIN Skin warm, dry, and normal in color.
PSYCHIATRIC Patient oriented to person place and time, Normal affect.
Course
Orders/Labs/Results
Orders:
Orders
04/08/24 20:45
CR Shoulder, Trauma - Left Urgent
Comment:
Reason For Exam: injury
04/08/24 21:53
Sling Left-Treatment ONCE
Shoulder, Left, Trauma CR [CR Shoulder, Trauma - Left] Urgent
Comment:
Reason For Exam: reduction
Vital Signs
Initial and Last Documented VS:
Initial Vital Signs
Temp Pulse Resp BP Pulse Ox
98.1 F 93 18 174/119 100
04/08/24 20:41 04/08/24 20:41 04/08/24 20:41 04/08/24 20:41 04/08/24 20:41
Last Documented Vital Signs
Temp Pulse Resp BP Pulse Ox
98.1 F 93 18 174/119 100
04/08/24 20:41 04/08/24 20:41 04/08/24 20:41 04/08/24 20:41 04/08/24 20:41
Procedures
Joint/Fracture Reduction
Left:
Indication for procedure:: Shoulder dislocation
Procedure completed by: Dr. Saini
Consent form signed: Yes
Joint reduced: without anesthesia
Injury was: closed
Further treatement: needs further treatment
MDM/Problems Addressed
MDM/Problems Addressed:
Shoulder dislocation
*Radiology
Radiology exam reviewed: preliminary read by ED provider (Shoulder dislocation)
*Pulse Oximetry
Patient hypoxic: no
*Critical Care Note
Total Time (30-74mins, 75-104mins- exclusive of procedures): Not Applicable
Data Reviewed
Source: patient
Prescriptions/Medications Considered But Not Given:
Consider sedation the patient was reduced at bedside
Patient Management
Escalation/DeEscalation of care consider admission/obs:
Reduced without complication. Check repeat postreduction x-ray and okay for discharge
ED Attending Note
-
Portions of this chart may have been created with voice recognition software.� Occasional wrong word or��sound alike� substitutions may have occurred due to the inherent limitations of voice recognition software.
Discharge Plan
Departure
Patient Disposition: Home (Routine Discharge)
Date of Disposition: 04/08/24
Time of Disposition: 22:03
Patient with high blood pressure during this ER visit?: Yes
Discharge Problem:
Anterior shoulder dislocation
Instructions: Shoulder Dislocation (DC), BLOOD PRESSURE
Prescriptions:
No Action
acetaminophen [Tylenol] 325 mg Tablet
650 mg PO Q6H PRN (Reason: mild pain)
carvedilol 3.125 mg Tablet
3.125 mg PO BID
digoxin 125 mcg (0.125 mg) Tablet
125 mcg PO TUTHFR@1500
Rx Instructions:
Per Dr Thanh Ac case worker in [place] was supposed to be taking only 0.0625 (half tablet) after HD on TThSa but since his level is ok go ahead and give whole 125mcg tablet--01/21/23 Jose Zhang PharmD
[phone] Dr Ac office number
Santyl 250 unit/gram Ointment
1 applic TOPICAL DAILY
Rx Instructions:
01/20/2023, patient applies to b/l leg wounds
[place] Caps 1 mg Capsule
1 cap PO DAILY
cinacalcet 30 mg Tablet
30 mg PO QPM
Eliquis 5 mg Tablet
5 mg PO BID
Auryxia 210 mg iron Tablet
210 mg PO AC
meclizine 12.5 mg Tablet
12.5 mg PO Q8 PRN (Reason: dizziness) Qty: 21 0RF
Referrals:
NONE,* [Family Provider] -
Interventions
Interventions:
*Risk Screen - Suicide Last Done: 04/08/24 20:41
*General Assessment Last Done: 04/08/24 20:41
*Neglect/Abuse Screening Last Done: 04/08/24 20:41
ED- Fall Risk Assessment Last Done: 04/08/24 21:43
*ED COVID-19 Vaccine History Last Done: 04/08/24 21:43
ED-Musculoskeletal Assessment Last Done: 04/08/24 21:43
Discharge Date and Time
Print Language: [email or web address]
[2024-04-08 22:19] VITALS: BP 148/105
[2024-04-08 22:20] VITALS: BP 149/105
== END 2024-04-08 22:51 | disposition home or self-care (01) ==
LOC: EMR 20:40
PROVIDERS: EMERGENCY PHYSICIAN Emergency Medicine
DX: S43.085A Other dislocation of left shoulder joint, initial encounter (principal); X50.1XXA Overexertion from prolonged static or awkward postures, initial encounter
CPT/HCPCS: 99283; 23650; 73030

== ENCOUNTER 2024-12-11 07:52 | Emergency (ER) | payer BC, SELFPAY ==
[2024-12-11] VITALS (9 sets, daily range): BP systolic 134–160; BP diastolic 81–107
--- NOTE | 2024-12-11 08:17 | ED.GENMED ---
History of Present Illness
General
Chief Complaint: Musculo-Skeletal Complaint
Source: patient
Exam Limitations: none
Time Seen by Provider: 12/11/24 08:12
History of Present Illness
History of Present Illness:
See MDM
Past History
Past History
ED Past Medical History: Arrthythmia (a fib), CHF and Renal failure
ED Past Surgical History: Other (L AV shunt)
Patient has exhibited threatening behavior?: No
PSI?: No
Social History
Tobacco: Non-smoker
Alcohol: None
Drug: None
Personal: Single
Living: with roommate
Employment: Employed
Phy Exam
Physical Exam
Physical Exam:
See MDM
Course
Orders/Labs/Results
Orders:
Orders
12/11/24 08:00
Shoulder, Left, Trauma CR [CR Shoulder, Trauma - Left] Urgent
Comment:
Reason For Exam: pain
12/11/24 08:30
Propofol [Diprivan] 20 ml .ROUTE .STK-MED
12/11/24 08:39
CR Shoulder - Left 1 View Urgent
Reason For Exam: reduction
Vital Signs
Initial and Last Documented VS:
Initial Vital Signs
Temp Pulse Resp BP Pulse Ox
98.7 F 82 16 160/105 98
12/11/24 07:55 12/11/24 07:55 12/11/24 07:55 12/11/24 07:55 12/11/24 07:55
Last Documented Vital Signs
Temp Pulse Resp BP Pulse Ox
98.0 F 72 16 145/98 97
12/11/24 09:30 12/11/24 09:15 12/11/24 09:15 12/11/24 09:15 12/11/24 09:15
Procedures
Moderate Sedation
ASA Risk Score: Class III
Chart and allergies reviewed: Yes
Consent for anesthesia obtained: Yes
Time out completed (validating right patient & procedure): Yes
Moderate Sedation Start Time(when first medication is given): 08:34
History of difficult intubation: No
Airway free of obstruction: Yes
Patient has a gag reflex: Yes
Patient is able to open mouth: Yes
Patient has no dentures: Yes
Patient has no loose teeth: Yes
Medication administered by Provider during Moderate Sedation: IV Propofol (mg)
Total dose administered: 200
Time drug administered: :34
Moderate Sedation Procedure End Time: 08:45
Comment: Patient required multiple doses of propofol which added to 200 mg total
Joint/Fracture Reduction
Left Anterior Proximal Shoulder:
Indication for procedure:: Shoulder dislocation
Procedure completed by: Arian Castillo DO
Consent form signed: Yes
Joint reduced: with anesthesia sedation
Injury was: closed
Further treatement: needs re-check only
Post reduction exam: stable
Capillary Refill: normal
Peripheral Pulses: radial (left): 2+
MDM/Problems Addressed
Differential Diagnosis Includes:
Note:
CHIEF COMPLAINT(S)
Left shoulder dislocation.
HISTORY OF PRESENT ILLNESS
The patient is a 39-year-old male with a history of renal transplant and prior dialysis, presenting with a left shoulder dislocation. He reports that the shoulder dislocated following a sneeze, occurring while he was getting out of the shower today.
The patient describes this pain as different and more severe compared to previous dislocations, stating it felt similar to the initial dislocations he experienced. The shoulder has dislocated 25 times in the past, and he has successfully reduced it
himself on 16 occasions. Since the transplant, this is the first dislocation of the shoulder. It has been noted that his past history includes a graft in the left arm, which has caused the shoulder to dislocate previously. The patient is
uncomfortable with sedation due to being on anti-rejection medication post-transplant and prefers attempts to reduce the shoulder without general anesthesia, if possible.
CHRONIC MEDICAL CONDITIONS SIGNIFICANTLY AFFECTING CARE
1. History of renal transplant.
2. Chronic shoulder instability.
ALLERGIES
Fibrilus skin allergy. No medication allergies reported.
REVIEW OF SYSTEMS
- Musculoskeletal: Recurrent left shoulder dislocations, pain different in severity from prior episodes, associated with sneezing.
- General: No recent trauma reported.
PHYSICAL EXAM
General: Well appearing and non-toxic
HEENT: protecting airway
Neck: appears supple
CV: No evidence of cyanosis
Resp: No accessory muscle use
Abd: Non-distended
Extremities: Observable shoulder dislocation on the left side, with potential increased muscle tension complicating reduction efforts. Distal extremity otherwise neurovascularly intact
Neuro: alert
Psych: Normal affect
Skin: Intact
PROBLEM LIST
Acute:
- Left shoulder dislocation.
Chronic:
- Recurrent shoulder dislocations.
- History of renal transplantation.
PLAN
Initially, I tried to reduce at bedside per patient's request. Due to the discomfort, patient requesting moderate sedation
DIFFERENTIAL DIAGNOSIS
The Differential Diagnosis includes, in no particular order and is not limited to:
1. Recurrent shoulder dislocation
2. Glenohumeral joint instability
3. Shoulder subluxation
4. Rotator cuff injury
5. Labral tear
6. Shoulder impingement syndrome
7. Brachial plexopathy
8. Tendonitis
9. Proximal humerus fracture
10. Osteoarthritis
Note:
Disposition:
SUMMARY OF ENCOUNTER
The 39-year-old male patient presented to the emergency department with a left shoulder dislocation caused by a sneeze. He has a history of recurrent shoulder dislocations and a recent renal transplant. Due to his comfort with sedation despite
anti-rejection medication, shoulder reduction was attempted. The patient was managed without general anesthesia based on his preferences.
REASSESSMENT
Following sedation, the left shoulder was successfully reduced and is now in place. Neurologic integrity remains intact.
PLAN
The immediate plan is to ensure the patients comfort and stability. He should follow up with his primary care doctor for ongoing management and consider follow-up with an orthopedist due to his chronic condition.
FOLLOW-UP INSTRUCTIONS
The patient is advised to follow up with his primary care doctor and an orthopedist given the ongoing issue with shoulder dislocation.
MEDICATION RECONCILIATION
The patient tolerated sedation well during the reduction procedure.
MEDICAL DECISION MAKING
The medical decision-making involved addressing an acute shoulder dislocation alongside the chronic condition of recurrent dislocations. Management was carefully considered given the patient�s renal transplant status and medication regimen.
Appropriate follow-up care was recommended.
*Critical Care Note
Total Time (30-74mins, 75-104mins- exclusive of procedures): Not Applicable
Update Note
Update Note:
8:52 AM patient tolerated sedation well. Shoulder reduced without difficulty
ED Attending Note
-
Portions of this chart may have been created with voice recognition software.� Occasional wrong word or��sound alike� substitutions may have occurred due to the inherent limitations of voice recognition software.
Discharge Plan
Departure
Patient Disposition: Home (Routine Discharge)
Date of Disposition: 12/11/24
Time of Disposition: 08:53
Patient with high blood pressure during this ER visit?: Yes
Discharge Problem:
Dislocation of shoulder, left, closed
Instructions: How to Use a Shoulder Sling, MODERATE SEDATION ADULT, BLOOD PRESSURE
Prescriptions:
No Action
acetaminophen [Tylenol] 325 mg Tablet
650 mg PO Q6H PRN (Reason: mild pain)
carvedilol 3.125 mg Tablet
3.125 mg PO BID
digoxin 125 mcg (0.125 mg) Tablet
125 mcg PO TUTHFR@1500
Rx Instructions:
Per Dr Thanh Ac regional director of admissions in [place] was supposed to be taking only 0.0625 (half tablet) after HD on TThSa but since his level is ok go ahead and give whole 125mcg tablet--01/21/23 Jose Zhang PharmD
[phone] Dr Ac office number
Santyl 250 unit/gram Ointment
1 applic TOPICAL DAILY
Rx Instructions:
01/20/2023, patient applies to b/l leg wounds
[place] Caps 1 mg Capsule
1 cap PO DAILY
cinacalcet 30 mg Tablet
30 mg PO QPM
Eliquis 5 mg Tablet
5 mg PO BID
Auryxia 210 mg iron Tablet
210 mg PO AC
meclizine 12.5 mg Tablet
12.5 mg PO Q8 PRN (Reason: dizziness) Qty: 21 0RF
Referrals:
Wesley Harrison MD [Active, Orthopedics]
Activity Restrictions/Additional Instructions:
Please return for any worsening symptoms.
You may return at any time if you have further concerns.
Please follow up with your doctor at the first available appointment, preferably this week.
Please make an appointment to see the orthopedist.
Thank you for choosing [facility].
Interventions
Interventions:
*Risk Screen - Suicide Last Done: 12/11/24 07:55
*General Assessment Last Done: 12/11/24 08:47
*Neglect/Abuse Screening Last Done: 12/11/24 07:55
*ED- Fall Risk Assessment Last Done: 12/11/24 08:47
*ED COVID-19 Vaccine History Last Done: 12/11/24 07:55
*Nursing Disposition Last Done: 12/11/24 09:33
ED-Musculoskeletal Assessment Last Done: 12/11/24 08:37
Discharge Date and Time
Discharge Date/Time: 12/11/24 09:34
Print Language: NIGERIAN
== END 2024-12-11 09:34 | disposition home or self-care (01) ==
LOC: EMR 07:52
PROVIDERS: EMERGENCY PHYSICIAN Student in an Organized Health Care Education/Training Program
DX: S43.015A Anterior dislocation of left humerus, initial encounter (principal); X58.XXXA Exposure to other specified factors, initial encounter; I48.91 Unspecified atrial fibrillation; I50.9 Heart failure, unspecified; N19 Unspecified kidney failure; Z94.0 Kidney transplant status; Z99.2 Dependence on renal dialysis
CPT/HCPCS: 99283; 23650; 73020; 73030; 96374; 99284

== ENCOUNTER 2025-01-27 18:15 | Emergency (ER) | payer BC, SELFPAY ==
[2025-01-27 18:19] VITALS: BP 183/117
--- NOTE | 2025-01-27 18:50 | ED.GENMED ---
History of Present Illness
General
Chief Complaint: Musculo-Skeletal Complaint
Source: patient
Time Seen by Provider: 01/27/25 18:28
History of Present Illness
History of Present Illness:
39-year-old male presents emergency room complaining of left shoulder plain. Patient states he was getting up off of a couch with his left arm extended onto the cushion when he felt it spontaneously dislocate. Patient had the sense that he could
almost get that shoulder back in on its own but was not successful prompting his visit to the ER. He has had several shoulder dislocations in the past. Patient had a kidney transplant performed stable few months ago. Therefore he is not sought
orthopedic evaluation knowing that he is not a candidate for surgery at least not anytime soon. While awaiting evaluation the patient did actually have spontaneous reduction of her shoulder. Patient is right-hand dominant.
Past History
Past History
ED Past Medical History: Arrthythmia (a fib), CHF and Renal failure
ED Past Surgical History: Other (L AV shunt)
Patient has exhibited threatening behavior?: No
PSI?: No
Social History
Tobacco: Non-smoker
Alcohol: None
Drug: None
Personal: Single
Living: with roommate
Employment: Employed
Phy Exam
Physical Exam
Physical Exam:
General: Awake, Alert, Oriented X3. No acute distress.
Vitals: unremarkable
Head: Atraumatic
Eyes: Pupils equal, EOMI
Neck: Trachea midline
Neuro: Nonfocal
Skin: Warm, dry, no rash
Extremities: pulses equal b/l, no edema. Mild pain with range of motion of the left shoulder. Neurovascularly intact. Sensation intact.
Course
Vital Signs
Initial and Last Documented VS:
Initial Vital Signs
Temp Pulse Resp BP Pulse Ox
98.2 F 87 16 183/117 99
01/27/25 18:19 01/27/25 18:19 01/27/25 18:19 01/27/25 18:19 01/27/25 18:19
Last Documented Vital Signs
Temp Pulse Resp BP Pulse Ox
98.2 F 87 16 171/115 98
01/27/25 18:19 01/27/25 18:19 01/27/25 18:19 01/27/25 19:22 01/27/25 19:22
MDM/Problems Addressed
Differential Diagnosis Includes:
Dislocation, subluxation, shoulder strain
MDM/Problems Addressed:
Patient had spontaneous reduction of shoulder. He feels back to baseline. No imaging obtained as he is basically asymptomatic or minimally symptomatic. Has had multiple dislocations in the past. Stressed the importance of following up with
orthopedic surgery.
*Pulse Oximetry
SaO2: 99
Oxygen Mode of Delivery: Room air
Patient hypoxic: no
*Critical Care Note
Total Time (30-74mins, 75-104mins- exclusive of procedures): Not Applicable
ED Attending Note
-
Portions of this chart may have been created with voice recognition software.� Occasional wrong word or��sound alike� substitutions may have occurred due to the inherent limitations of voice recognition software.
Discharge Plan
Departure
Patient Disposition: Home (Routine Discharge)
Date of Disposition: 01/27/25
Time of Disposition: 18:50
Patient with high blood pressure during this ER visit?: Yes
Condition: Good
Discharge Problem:
Anterior shoulder dislocation
Instructions: Shoulder Dislocation (DC)
Prescriptions:
No Action
acetaminophen [Tylenol] 325 mg Tablet
650 mg PO Q6H PRN (Reason: mild pain)
carvedilol 3.125 mg Tablet
3.125 mg PO BID
digoxin 125 mcg (0.125 mg) Tablet
125 mcg PO TUTHFR@1500
Rx Instructions:
Per Dr Thanh Ac registered veterinary technician in [place] was supposed to be taking only 0.0625 (half tablet) after HD on TThSa but since his level is ok go ahead and give whole 125mcg tablet--01/21/23 Jose Zhang PharmD
[phone] Dr Ac office number
Santyl 250 unit/gram Ointment
1 applic TOPICAL DAILY
Rx Instructions:
01/20/2023, patient applies to b/l leg wounds
[place] Caps 1 mg Capsule
1 cap PO DAILY
cinacalcet 30 mg Tablet
30 mg PO QPM
Eliquis 5 mg Tablet
5 mg PO BID
Auryxia 210 mg iron Tablet
210 mg PO AC
meclizine 12.5 mg Tablet
12.5 mg PO Q8 PRN (Reason: dizziness) Qty: 21 0RF
Referrals:
Wesley Harrison MD [Active, Orthopedics]
UNKNOWN - PT DOES,NOT KNOW [Family Provider]
Interventions
Interventions:
*Risk Screen - Suicide Last Done: 01/27/25 18:19
*General Assessment Last Done: 01/27/25 18:42
*Neglect/Abuse Screening Last Done: 01/27/25 18:19
*ED- Fall Risk Assessment Last Done: 01/27/25 19:22
*ED COVID-19 Vaccine History Last Done: 01/27/25 18:42
*Nursing Disposition Last Done: 01/27/25 19:22
ED-Musculoskeletal Assessment Last Done: 01/27/25 18:42
Discharge Date and Time
Discharge Date/Time: 01/27/25 19:24
Print Language: CHINESE
[2025-01-27 19:03] VITALS: BP 187/128
[2025-01-27 19:22] VITALS: BP 171/115
== END 2025-01-27 19:24 | disposition home or self-care (01) ==
LOC: EMR 18:15
PROVIDERS: EMERGENCY PHYSICIAN Emergency Medicine
DX: S43.005A Unspecified dislocation of left shoulder joint, initial encounter (principal); X58.XXXA Exposure to other specified factors, initial encounter; R03.0 Elevated blood-pressure reading, without diagnosis of hypertension; I48.91 Unspecified atrial fibrillation; I50.9 Heart failure, unspecified; Z94.0 Kidney transplant status; Z91.048 Other nonmedicinal substance allergy status
CPT/HCPCS: 99281

== ENCOUNTER 2025-02-05 00:06 | Emergency (ER) | payer BC, SELFPAY ==
[2025-02-05] VITALS (14 sets, daily range): BP systolic 116–167; BP diastolic 82–116; BMI 36.8
--- NOTE | 2025-02-05 01:23 | ED.GENMED ---
History of Present Illness
General
Chief Complaint: Musculo-Skeletal Complaint
Source: patient
Time Seen by Provider: 02/05/25 00:52
History of Present Illness
History of Present Illness:
39-year-old male presents to the emergency room complaining of left shoulder pain. Patient is right-hand dominant. Patient was sleeping when he began having pain in his left shoulder. He has had several spontaneous shoulder dislocations in the
past. He was scheduled for surgery but this was postponed due to a recent kidney transplant. Patient states he has had over 25 shoulder dislocations.
Past History
Past History
ED Past Medical History: Arrthythmia (a fib), CHF and Renal failure
ED Past Surgical History: Other (L AV shunt)
Patient has exhibited threatening behavior?: No
PSI?: No
Social History
Tobacco: Non-smoker
Alcohol: None
Drug: None
Personal: Single
Living: with roommate
Employment: Employed
Phy Exam
Physical Exam
Physical Exam:
General: Awake, Alert, Oriented X3. No acute distress.
Vitals: unremarkable
Head: Atraumatic
Eyes: Pupils equal, EOMI
Throat: Airway intact, no exudates
Lungs: Clear bilateral
Heart: Regular rate and rhythm
Neuro: Nonfocal
Skin: Warm, dry, no rash
Extremities: pulses equal b/l, no edema. Obvious left shoulder deformity.
Course
Orders/Labs/Results
Orders:
Orders
02/05/25 00:40
CR Shoulder - Left Min 2 View* Urgent
Comment:
Reason For Exam: pain
02/05/25 01:23
Propofol [Diprivan] 20 ml .ROUTE .STK-MED
02/05/25 01:40
Shoulder, Left 1 View CR [CR Shoulder - Left 1 View] Stat
Comment:
Reason For Exam: post reduction
Vital Signs
Initial and Last Documented VS:
Initial Vital Signs
Temp Pulse Resp BP Pulse Ox
97.9 F 87 18 165/82 98
02/05/25 00:08 02/05/25 00:08 02/05/25 00:08 02/05/25 00:08 02/05/25 00:08
Last Documented Vital Signs
Temp Pulse Resp BP Pulse Ox
98.1 F 80 16 167/115 96
02/05/25 02:25 02/05/25 02:25 02/05/25 02:25 02/05/25 02:25 02/05/25 02:25
MDM/Problems Addressed
Differential Diagnosis Includes:
Shoulder dislocation, fracture
MDM/Problems Addressed:
Patient presents with a spontaneous dislocation of the left shoulder. Attempted to use reduce without sedation but patient did not tolerate. With sedation we were able to easily reduce the left shoulder though it seems quite unstable. It did not
hold the reduction when he was completely sedated and we were moving arm through more than a small range of motion. Patient placed in a sling.
*Radiology
Radiology exam reviewed: preliminary read by ED provider (Anterior shoulder dislocation, no fracture)
*Pulse Oximetry
SaO2: 96
Oxygen Mode of Delivery: Room air
Patient hypoxic: no
*Critical Care Note
Total Time (30-74mins, 75-104mins- exclusive of procedures): Not Applicable
ED Attending Note
-
Portions of this chart may have been created with voice recognition software.� Occasional wrong word or��sound alike� substitutions may have occurred due to the inherent limitations of voice recognition software.
Discharge Plan
Departure
Patient Disposition: Home (Routine Discharge)
Date of Disposition: 02/05/25
Time of Disposition: 02:11
Patient with high blood pressure during this ER visit?: No
Condition: Good
Discharge Problem:
Dislocation, shoulder, anterior
Instructions: Shoulder Dislocation (DC), Sedation for procedures in adults - ED discharge instructions
Prescriptions:
No Action
acetaminophen [Tylenol] 325 mg Tablet
650 mg PO Q6H PRN (Reason: mild pain)
carvedilol 3.125 mg Tablet
3.125 mg PO BID
digoxin 125 mcg (0.125 mg) Tablet
125 mcg PO TUTHFR@1500
Rx Instructions:
Per Dr Thanh Ac claim taker in [place] was supposed to be taking only 0.0625 (half tablet) after HD on TThSa but since his level is ok go ahead and give whole 125mcg tablet--01/21/23 Jose Zhang PharmD
[phone] Dr Ac office number
Santyl 250 unit/gram Ointment
1 applic TOPICAL DAILY
Rx Instructions:
01/20/2023, patient applies to b/l leg wounds
[place] Caps 1 mg Capsule
1 cap PO DAILY
cinacalcet 30 mg Tablet
30 mg PO QPM
Eliquis 5 mg Tablet
5 mg PO BID
Auryxia 210 mg iron Tablet
210 mg PO AC
meclizine 12.5 mg Tablet
12.5 mg PO Q8 PRN (Reason: dizziness) Qty: 21 0RF
Referrals:
UNKNOWN - PT DOES,NOT KNOW [Family Provider]
Interventions
Interventions:
*Risk Screen - Suicide Last Done: 02/05/25 00:12
*General Assessment Last Done: 02/05/25 00:12
*Neglect/Abuse Screening Last Done: 02/05/25 00:12
*ED- Fall Risk Assessment Last Done: 02/05/25 00:12
*ED COVID-19 Vaccine History Last Done: 02/05/25 00:12
ED-Musculoskeletal Assessment Last Done: 02/05/25 01:04
Discharge Date and Time
Print Language: TOGOLESE
== END 2025-02-05 03:25 | disposition home or self-care (01) ==
LOC: EMR 00:06
PROVIDERS: EMERGENCY PHYSICIAN Emergency Medicine
DX: M24.412 Recurrent dislocation, left shoulder (principal); I48.91 Unspecified atrial fibrillation; I50.9 Heart failure, unspecified; N19 Unspecified kidney failure; Z91.048 Other nonmedicinal substance allergy status
CPT/HCPCS: 99285; 23650; 99152; 73020; 73030